=== PATIENT | male | born 1980 | race Caucasian/White ===

== ENCOUNTER 2017-04-17 10:48 | Emergency (ER) | payer OTHER ==
[2017-04-17] MEDS ORDERED: Acetaminophen/Codeine 30-300mg Tablet ONE (11:26)
== END 2017-04-17 11:35 | disposition home or self-care (01) ==
LOC: MADERS 10:48
DX: S39.012A Strain of muscle, fascia and tendon of lower back, initial encounter (principal); W01.198A Fall on same level from slipping, tripping and stumbling with subsequent striking against other object, initial encounter; Y92.69 Other specified industrial and construction area as the place of occurrence of the external cause; Y99.0 Civilian activity done for income or pay
CPT/HCPCS: 99283

== ENCOUNTER 2017-10-23 10:05 | Emergency (ER) | payer OTHER, SELFPAY ==
[2017-10-23] MEDS ORDERED: Ibuprofen 800 MG TAB ONE (11:06)
== END 2017-10-23 11:08 | disposition home or self-care (01) ==
LOC: MADERS 10:05
DX: H10.9 Unspecified conjunctivitis (principal)
CPT/HCPCS: 99282